=== PATIENT | female | born 1970 | race Caucasian/White ===

== ENCOUNTER 2017-03-11 01:23 | Emergency (ER) | payer OTHER ==
[~2017-03-11] VITALS: Ht 170.2 cm; Wt 122.7 kg
[~2017-03-11 01:23] MED LIST: AMBIEN10 MG PO; CITALOPRAM HBR20 MG PO; LISINOPRIL10 MG PO; OXYCODONE HCL5 M1 PO
[2017-03-11 02:16] LABS: EOSINOPHIL (%) 1.3 % (0-5); EOSINOPHIL COUNT 0.1 K/uL (0-0.3); HEMATOCRIT 39.1 % (36.0-46.0); IMMATURE GRANULOCYTE (%) 0.3 % (0.0-0.7); INSTRUMENT ABS NEUTROPHIL CT 4.8 K/uL; MCH 27.4 PG (29.0-34.0); MCV 85.7 FL (83-99); MEAN PLAT.VOLUME 9.4 uM^3 (9.5-12.4); MONOCYTE (%) 7.7 % (3-12); MONOCYTE COUNT 0.7 K/uL (0-0.8); NEUTROPHIL (%) 55.6 % (45-76); NEUTROPHIL COUNT 4.8 K/uL (1.8-6.4); PLATELET COUNT 255 K/uL (156-360); RBC DIS.WIDTH-CV 12.8 % (11.8-14.6); RED BLOOD COUNT 4.56 M/uL (3.80-5.20); WHITE BLOOD COUNT 8.6 K/uL (4.1-10.2)
[2017-03-11 02:28] LABS: CHLORIDE 107 mEq/L (99-109); POTASSIUM 3.3 mEq/L (3.7-5.4); SODIUM 141 mEq/L (136-147)
[2017-03-11 02:30] LABS: GLUCOSE 112 mg/dL (70-99)
[2017-03-11 02:31] LABS: ANION GAP 13 MEQ/L (2-14)
[2017-03-11 02:33] LABS: SERUM ETHYL ALCOHOL 241 mg/dL
[2017-03-11 02:34] LABS: GFR ESTIMATE (CALCULATED) > 59 mL/min/
[2017-03-11 02:35] LABS: UREA NITROGEN (BUN) 8 mg/dL (9-23)
[2017-03-11] MEDS ORDERED: PROTONIX40 MG PO (02:45)
[2017-03-11 06:26] VITALS: BP 96/60
== END 2017-03-11 06:48 | disposition home or self-care (01) ==
LOC: EME → EDBD 01:23 → EME 01:23
PROVIDERS: Emergency Medicine
DX: F10.129 Alcohol abuse with intoxication, unspecified (principal); Y90.8 Blood alcohol level of 240 mg/100 ml or more; F32.9 Major depressive disorder, single episode, unspecified; I10 Essential (primary) hypertension
CPT/HCPCS: 80048; 85025; 99281; 99285; G0480; J2405; J7030